=== PATIENT | female | born 1965 | race Caucasian/White ===

== ENCOUNTER 2016-07-19 14:46 | Observation (INO) | payer BC, OTHER ==
[2016-07-19] MEDS ORDERED: LORazepam 2 MG/ML SYRINGE IV STA (14:53)
--- NOTE | 2016-07-19 14:57 | ED ---
General Adult HPI - General Stated complaint: Chest Pain/With asthma/DU Time Seen by Provider: 07/19/16 14:46 Source: RN notes reviewed - History of Present Illness Initial comments: This is a 51-year-old female who presents emergency Department with a past history significant for scleroderma and asthma. According to the son patient started having and has been taking 2 hours ago and then started to have what he believes is a panic attack so she's not had those in the past. Patient states she then started having chest pain after about an hour and considered a pressure in the chest no radiation of the pressure however. States there is still some feeling of difficulty breathing. Patient states over the weekend she had a sinus infection but that seemed to be getting better. Patient denies any abdominal pain patient denies nausea vomiting diarrhea per patient denies any headache patient denies light headedness or dizziness. - Related Data Home Medications Medication Instructions Recorded Confirmed Gabapentin [Neurontin] 200 mg PO DAILY 07/19/16 07/19/16 Ondansetron HCl [Zofran] 8 mg PO Q8H PRN 07/19/16 07/19/16 carBAMazepine [TEGretol XR] 300 mg PO Q12H 07/19/16 07/19/16 Allergies Allergy/AdvReac Type Severity Reaction Status Date / Time cephalexin [From Keflex] Allergy Rash/Hives Verified 07/19/16 15:19 theophylline Allergy Unknown Verified 07/19/16 15:19 Review of Systems ROS Statement: Those systems with pertinent positive or pertinent negative responses have been documented in the HPI. ROS Other: All systems not noted in ROS Statement are negative. General Exam - General Exam Comments Initial Comments: GENERAL: Patient is well-developed and well-nourished. Patient is nontoxic and well- hydrated and is in mild distress. ENT: Neck is soft and supple. No significant lymphadenopathy is noted. Oropharynx is clear. Moist mucous membranes. Neck has full range of motion without eliciting any pain. EYES: The sclera were anicteric and conjunctiva were pink and moist. Extraocular movements were intact and pupils were equal round and reactive to light. Eyelids were unremarkable. PULMONARY: Patient has decent breath sounds however she has quite a bit of upper airway noise but I believe it is more secondary to her panicking and making noise and it is too any upper airway obstruction because it does appear to be intermittent CARDIOVASCULAR: There is a regular rate and rhythm without any murmurs gallops or rubs. ABDOMEN: Soft and nontender with normal bowel sounds. No palpable organomegaly was noted. There is no palpable pulsatile mass. SKIN: Skin is clear with no lesions or rashes and otherwise unremarkable. NEUROLOGIC: Patient is alert and oriented x3. Cranial nerves II through XII are grossly intact. Motor and sensory are also intact. Normal speech, volume and content. Symmetrical smile. MUSCULOSKELETAL: Normal extremities with adequate strength and full range of motion. No lower extremity swelling or edema. No calf tenderness. LYMPHATICS: No significant lymphadenopathy is noted PSYCHIATRIC: Normal psychiatric evaluation. Normal interpersonal interactions appears functionally intact in deals appropriately with others. No signs of depression. Moderately anxious Course Vital Signs 07/19/16 07/19/16 14:52 15:27 Temperature 98.3 F Pulse Rate 69 89 Respiratory 30 H 24 Rate Blood Pressure 139/100 133/67 O2 Sat by Pulse 100 99 Oximetry Medical Decision Making - Medical Decision Making EKG shows normal sinus rhythm at 87 bpm HI interval is 138 QRS is 72 QT interval 352 QTC is 423. EKG shows no ST segment elevation or depression or T wave abnormalities are noted Patient's chest x-ray shows no acute abnormality. Once I gave the patient some Ativan she seemed to relax started breathing considerably better. All vitals were stable and she was satting at 100% while sleeping Spoke with Dr. Gutiérrez and because of the chest pain we will 23 hour observation the patient rule out her enzymes and make sure she has no further difficulty breathing. - Lab Data Result diagrams: 07/19/16 15:05 07/19/16 15:05 Lab Results 07/19/16 07/19/16 07/19/16 Range/Units 15:05 15:05 15:05 WBC 6.9 (3.8-10.6) k/uL RBC 4.64 (3.80-5.40) m/uL Hgb 14.2 (11.4-16.0) gm/dL Hct 43.3 (34.0-46.0) % MCV 93.4 (80.0-100.0) fL MCH 30.5 (25.0-35.0) pg MCHC 32.7 (31.0-37.0) g/dL RDW 12.6 (11.5-15.5) % Plt Count 290 (150-450) k/uL Neutrophils % 68 % Lymphocytes % 23 % Monocytes % 6 % Eosinophils % 1 % Basophils % 1 % Neutrophils # 4.7 (1.3-7.7) k/uL Lymphocytes # 1.6 (1.0-4.8) k/uL Monocytes # 0.4 (0-1.0) k/uL Eosinophils # 0.1 (0-0.7) k/uL Basophils # 0.0 (0-0.2) k/uL PT (9.0-12.0) sec INR (<1.1) APTT (22.0-30.0) sec Sodium 141 (137-145) mmol/L Potassium 3.8 (3.5-5.1) mmol/L Chloride 104 (98-107) mmol/L Carbon Dioxide 21 L (22-30) mmol/L Anion Gap 16 mmol/L BUN 9 (7-17) mg/dL Creatinine 0.83 (0.52-1.04) mg/dL Est GFR (MDRD) Af Amer >60 (>60 ml/min/1.73 sqM) Est GFR (MDRD) Non-Af >60 (>60 ml/min/1.73 sqM) Glucose 93 (74-99) mg/dL Calcium 9.3 (8.4-10.2) mg/dL Magnesium 1.8 (1.6-2.3) mg/dL Total Bilirubin 0.3 (0.2-1.3) mg/dL AST 19 (14-36) U/L ALT 24 (9-52) U/L Alkaline Phosphatase 49 (38-126) U/L Total Creatine Kinase 38 (30-135) U/L CK-MB (CK-2) 0.3 (0.0-2.4) ng/mL CK-MB (CK-2) Rel Index 0.8 Troponin I <0.012 (0.000-0.034) ng/mL Total Protein 7.2 (6.3-8.2) g/dL Albumin 4.0 (3.5-5.0) g/dL 07/19/16 Range/Units 15:05 WBC (3.8-10.6) k/uL RBC (3.80-5.40) m/uL Hgb (11.4-16.0) gm/dL Hct (34.0-46.0) % MCV (80.0-100.0) fL MCH (25.0-35.0) pg MCHC (31.0-37.0) g/dL RDW (11.5-15.5) % Plt Count (150-450) k/uL Neutrophils % % Lymphocytes % % Monocytes % % Eosinophils % % Basophils % % Neutrophils # (1.3-7.7) k/uL Lymphocytes # (1.0-4.8) k/uL Monocytes # (0-1.0) k/uL Eosinophils # (0-0.7) k/uL Basophils # (0-0.2) k/uL PT 11.1 (9.0-12.0) sec INR 1.1 (<1.1) APTT 28.8 (22.0-30.0) sec Sodium (137-145) mmol/L Potassium (3.5-5.1) mmol/L Chloride (98-107) mmol/L Carbon Dioxide (22-30) mmol/L Anion Gap mmol/L BUN (7-17) mg/dL Creatinine (0.52-1.04) mg/dL Est GFR (MDRD) Af Amer (>60 ml/min/1.73 sqM) Est GFR (MDRD) Non-Af (>60 ml/min/1.73 sqM) Glucose (74-99) mg/dL Calcium (8.4-10.2) mg/dL Magnesium (1.6-2.3) mg/dL Total Bilirubin (0.2-1.3) mg/dL AST (14-36) U/L ALT (9-52) U/L Alkaline Phosphatase (38-126) U/L Total Creatine Kinase (30-135) U/L CK-MB (CK-2) (0.0-2.4) ng/mL CK-MB (CK-2) Rel Index Troponin I (0.000-0.034) ng/mL Total Protein (6.3-8.2) g/dL Albumin (3.5-5.0) g/dL Disposition Clinical Impression: Acute asthma exacerbation, Chest pain, Anxiety Disposition: ADMITTED IP TO [facility] Time of Disposition: 16:08
[2016-07-19] MEDS ORDERED: methylPREDNISolone SOD SUCCI 125 MG/2 ML VIAL IV STA (15:01)
[2016-07-19 15:14] LABS: Basophils % (A) 1 %; CH 31.7; CHCM 34.1; Eosinophils # (A) 0.1 k/uL (0-0.7); Eosinophils % (A) 1 %; HCT 43.3 % (34.0-46.0); HDW 2.28; HGB 14.2 gm/dL (11.4-16.0); Luc # (Auto) 0.09; Luc % (Auto) 1; Lymphocytes # (A) 1.6 k/uL (1.0-4.8); Lymphocytes % (A) 23 %; MCH 30.5 pg (25.0-35.0); MCHC 32.7 g/dL (31.0-37.0); MCV 93.4 fL (80.0-100.0); Mean Platelet Volume 7.5; Monocytes # (A) 0.4 k/uL (0-1.0); Monocytes % (A) 6 %; Neutrophils # (A) 4.7 k/uL (1.3-7.7); Neutrophils % (A) 68 %; RBC 4.64 m/uL (3.80-5.40); RDW 12.6 % (11.5-15.5); WBC 6.9 k/uL (3.8-10.6); WBC (Perox) 6.79
[2016-07-19 15:23] LABS: ALT 24 U/L (9-52); AST 19 U/L (14-36); Alkaline Phosphatase 49 U/L (38-126); Anion Gap 16 mmol/L; Blood Urea Nitrogen 9 mg/dL (7-17); Calcium 9.3 mg/dL (8.4-10.2); Carbon Dioxide 21 mmol/L (22-30); Chloride 104 mmol/L (98-107); Glucose 93 mg/dL (74-99); Magnesium 1.8 mg/dL (1.6-2.3); Non-African American GFR(MDRD) >60 (>60 ml/min/1.73 sqM); Potassium 3.8 mmol/L (3.5-5.1); Sodium 141 mmol/L (137-145); Total Bilirubin 0.3 mg/dL (0.2-1.3); Total Protein 7.2 g/dL (6.3-8.2)
[2016-07-19 15:25] LABS: INR 1.1 (<1.1); Partial Thromboplastin Time 28.8 sec (22.0-30.0); Prothrombin Time 11.1 sec (9.0-12.0)
[2016-07-19 15:34] LABS: Creatine Kinase 38 U/L (30-135)
--- NOTE | 2016-07-19 15:42 | XR ---
EXAMINATION TYPE: XR chest 2V DATE OF EXAM: 07/19/2016 3:39 PM COMPARISON: NONE HISTORY: Asthma TECHNIQUE: Frontal and lateral views of the chest are obtained. FINDINGS: Heart and mediastinum are normal. Lungs are clear. Diaphragm is normal. There are chest le ads. Bony thorax appears normal. IMPRESSION: Normal chest
[2016-07-19 15:47] LABS: Creatine Kinase MB 0.3 ng/mL (0.0-2.4); Troponin I <0.012 ng/mL (0.000-0.034)
[2016-07-19] MEDS ORDERED: ALPRAZolam 0.25 MG TAB PO PRN (17:07)
[2016-07-19 18:09] VITALS: BMI 21.7
[2016-07-19] MEDS ORDERED: ONDANSETRON 4 MG TAB PO PRN (19:43)
[2016-07-19] MEDS: IPRATROPIUM-ALBUTEROL 3 ML NEB INHALATION PRN (20:00)
[2016-07-19 20:27] LABS: Glucose,Whole Blood 149 mg/dL (75-99)
[2016-07-19] MEDS: GABAPENTIN 100 MG CAP PO SCH (20:50)
[2016-07-19] MEDS: carBAMazepine 100 MG TAB.ER.12H PO SCH (20:50)
[2016-07-19] MEDS: INSULIN LISPRO (humaLOG) 300 UNIT/3 ML VIAL SQ SCH (20:50)
[2016-07-19] MEDS: methylPREDNISolone SOD SUCCI 125 MG/2 ML VIAL IV SCH (23:21)
[2016-07-20 07:01] LABS: Glucose,Whole Blood 112 mg/dL (75-99)
[2016-07-20] MEDS: GABAPENTIN 100 MG CAP PO SCH (07:55)
[2016-07-20] MEDS: carBAMazepine 100 MG TAB.ER.12H PO SCH ×2 (07:55→19:57)
[2016-07-20] MEDS: INSULIN LISPRO (humaLOG) 300 UNIT/3 ML VIAL SQ SCH ×4 (07:55→19:57)
[2016-07-20] MEDS: methylPREDNISolone SOD SUCCI 125 MG/2 ML VIAL IV SCH ×3 (07:55→17:15)
[2016-07-20] MEDS: IPRATROPIUM-ALBUTEROL 3 ML NEB INHALATION PRN ×5 (10:06→22:10)
--- NOTE | 2016-07-20 12:09 | P.CNPUL ---
History of Present Illness Consult date: 07/20/16 Reason for consult: dyspnea History of present illness: 51-year-old female patient with a complicated history of scleroderma, limited, with history of crest syndrome, he is esophageal dysmotility, Raynaud's, chronic arthritis and chronic skin changes involving the neck anterior chest and the hands bilaterally. This patient is also known to have chronic bronchial asthma and she has been maintained on Symbicort on outpatient basis. The patient has not had any major breathing difficulties nor asthma exacerbation for many years. Her last exacerbation was approximately 4 years ago. The patient had a sinus infection approximately 4 weeks ago and she was treated on outpatient basis with antibiotics. She felt better. Around 24 hours ago she had exposure to some solution called static guarded, used to elevate the static from clothing. Immediately following the exposure the patient felt increased shortness of breath and tightness in her anterior chest. She became progressively more anxious when she was unable to find her an inhaler which was also . At that point she contacted me and asked to come in to the emergency department. Chest x-ray done showed no acute abnormalities and the rest of the blood work is all negative. On today's evaluation the patient is still having some increased bronchospasm and wheezing especially with extremity maneuvers pH is currently on oxygen. No fever or chills. No sputum production. Chest is still feeling tight. She is on DuoNeb nebulized treatments and she is started on IV Solu-Medrol for asthma exacerbation. She has chronic symptoms of heartburn which is not active for now. Review of Systems We'll review of system was done and the positive findings are mentionable history of present illness: Past Medical History Past Medical History: No Reported History, Asthma, Fibromyalgia Additional Past Medical History / Comment(s): limnited scleraderma with CREST , esophageal dysmotolity and Raynauds, pt. states she also has small fiber neuropathy and vertigo, Bacterial overgrowth involving the large bowel, chronic weight loss due to dietary difficulties in association with his esophageal dysmotility, chronic pain, degenerative arthritis History of Any Multi-Drug Resistant Organisms: None Reported Additional Past Surgical History / Comment(s): EGD, eve fundoplication Past Anesthesia/Blood Transfusion Reactions: No Reported Reaction Past Psychological History: Anxiety, Depression Smoking Status: Never smoker Past Alcohol Use History: Occasional Past Drug Use History: None Reported - Past Family History Father Family Medical History: Cancer Additional Family Medical History / Comment(s): father 11 years ago from lung cancer Mother Additional Family Medical History / Comment(s): pt. states her mother is alive and healthy Medications and Allergies Home Medications Medication Instructions Recorded Confirmed Type Albuterol Inhaler [Ventolin Hfa 1 - 2 puff INHALATION PRN 07/19/16 History Inhaler] Gabapentin [Neurontin] 200 mg PO DAILY 07/19/16 07/19/16 History Ondansetron HCl [Zofran] 8 mg PO Q8H PRN 07/19/16 07/19/16 History carBAMazepine [TEGretol XR] 300 mg PO Q12H 07/19/16 07/19/16 History Allergies Allergy/AdvReac Type Severity Reaction Status Date / Time cephalexin [From Keflex] Allergy Rash/Hives Verified 07/19/16 18:21 theophylline Allergy Unknown Verified 07/19/16 18:21 Physical Exam Vitals: Vital Signs Temp Pulse Pulse Resp BP BP Pulse Ox 07/20/16 10:06 84 07/20/16 08:00 97.8 F 83 16 100/57 99 07/20/16 04:00 98.2 F 74 18 96/52 99 07/20/16 03:34 89 18 07/19/16 23:40 89 18 07/19/16 23:35 89 18 93/57 98 07/19/16 20:14 82 07/19/16 20:00 82 83 18 07/19/16 19:51 97.9 F 83 18 107/73 100 07/19/16 18:09 16 07/19/16 17:23 98 F 16 103/69 98 07/19/16 16:55 97.6 F 97 16 100/57 100 07/19/16 16:11 85 18 101/65 100 Intake and Output 07/19/16 07/20/16 07/20/16 22:59 06:59 14:59 Intake Total 150 240 Balance 150 240 Intake: Oral 150 240 Other: Voiding Method Toilet Toilet Toilet # Voids 3 Weight 61.235 kg Head exam was generally normal. There was no scleral icterus or corneal arcus. Mucous membranes were moist.Neck was supple and without jugular venous distension, thyromegaly, or carotid bruits. Carotids were easily palpable bilaterally. There was no adenopathy. Skin over the anterior neck is rather thickened typical of scleroderma. Lung sounds are diminished and there is diffuse expiratory wheezes throughout the lung ulloa bilaterally along with prolongation of the expiratory phase of breathing.Cardiac exam revealed the PMI to be normally situated and sized. The rhythm was regular and no extrasystoles were noted during several minutes of auscultation. The first and second heart sounds were normal and physiologic splitting of the second heart sound was noted. There were no murmurs, rubs, clicks, or gallops.Abdominal exam revealed normal bowel sounds. The abdomen was soft, non-tender, and without masses, organomegaly, or appreciable enlargement of the abdominal aorta.Examination of the extremities revealed easily palpable radial, femoral and pedal pulses. There was no cyanosis, clubbing or edema. Results - Laboratory Findings CBC and BMP: 07/19/16 15:05 07/19/16 15:05 PT/INR, D-dimer PT 11.1 sec (9.0-12.0) 07/19/16 15:05 INR 1.1 (<1.1) 07/19/16 15:05 Abnormal lab findings: Abnormal Labs 07/19/16 07/20/16 20:22 06:56 POC Glucose (mg/dL) 149 H 112 H - Diagnostic Findings Chest x-ray: image reviewed Assessment and Plan Plan: Assessment 1 acute asthma exacerbation, probably due to chemical exposure, cannot rule out underlying tracheal bronchitis. No evidence of any pneumonia on today's chest x -ray. The patient was admitted for increased shortness of breath and she is currently on a combination of bronchodilators and systemic steroids. She was given Advair the past however she has not been on it on a regular basis as maintenance. No rescue inhalers that was available to her at home. 2 shortness of breath secondary to above 3 scleroderma 4 crest syndrome investigation was scleroderma 5 chronic esophageal dysmotility with reflux and difficulty with swallowing and subsequent weight loss 6 reynouald's phenomena 7 fibromyalgia 8 chronic pain 9 peripheral neuropathy 10 complications related to scleroderma including bacterial overgrowth Plan We'll keep the patient has less for another 24 hours. We'll continue the bronchodilators and systemic steroids. We'll cover this patient with IV Zithromax 5 mg every 24 hours is a broad-spectrum antibiotic coverage regarding sicca bronchitis. We'll continue to follow make further recommendations based on her progress.
[2016-07-20 12:21] LABS: Hemoglobin A1C 4.9 % (4.2-6.1)
[2016-07-20] MEDS: AZITHROMYCIN 500 MG in SODIUM CHLORIDE 0.9% 250 ML IVPB SCH (13:24)
[2016-07-20] MEDS: PANTOPRAZOLE 40 MG/10 ML VIAL IVP SCH (17:13)
[2016-07-20 17:16] LABS: Glucose,Whole Blood 390 mg/dL (75-99)
[2016-07-20] MEDS: HEPARIN SODIUM,PORCINE 5,000 UNIT/ML 1 ML VIAL SQ SCH ×3 (17:17→19:57)
--- NOTE | 2016-07-20 17:55 | HP ---
DATE OF ADMISSION: Chief complaint is difficulty breathing. HISTORY OF ILLNESS: Ms. Mcdonald is a 51-year-old female with known history of scleroderma, fibromyalgia and other complications involving scleroderma including history of esophageal dysmotility and small bowel bacterial overgrowth and history of asthma. Came to the hospital with complaints of sudden onset of short of breath. While she was cleaning the house, apparently patient was spraying static guard at home when she got suddenly short of breath which made her come to the hospital and the patient was wheezing on admission. Patient did improve clinically with systemic steroids and breathing treatments. Patient did have a sinus infection 4 weeks ago and she was treated with antibiotics as an outpatient. Chest x-ray showed no acute cardiopulmonary process. Pulmonary has seen the patient and patient was also started on antibiotics in the form for azithromycin for acute tracheobronchitis. Denied any recent illnesses or sick contacts at home. No recent travel. Patient is followed at the [facility] for her scleroderma treatment. REVIEW OF SYSTEMS: CONSTITUTIONAL: No fever. No chills. No weakness. RESPIRATORY: No cough or sputum production and patient does have short of breath. CARDIOVASCULAR: No chest pain or short of breath. No leg swelling. ABDOMEN: No nausea, vomiting or abdominal pain. GENITOURINARY: Negative. ENDOCRINE: Negative. PSYCHIATRIC: Negative. SKIN: Negative. All other 14-point review of systems negative except as above. PAST MEDICAL HISTORY: Chronic bronchial asthma, fibromyalgia, limited scleroderma with Crest syndrome, severe dysmotility, Raynaud's phenomenon, small fiber neuropathy and vertigo, bacterial overgrowth involving the small bowel, chronic weight loss due to dietary difficulties in association with esophageal dysmotility and chronic pain, degenerative joint disease. PAST SURGICAL HISTORY: EGD, nasal fundoplication. PSYCHOSOCIAL HISTORY: Anxiety and depression. SOCIAL HISTORY: Patient never a smoker. Occasional alcohol, denied any drugs or IVDU. FAMILY HISTORY: Father had cancer, 11 years ago from lung cancer. Mother is living and healthy. Home medications include: 1. Albuterol HFA. 2. Gabapentin. 3. Ondansetron. 4. Tegretol. Allergies include KEFLEX and THEOPHYLLINE. PHYSICAL EXAMINATION: A 51-year-old female, lying in the bed. Awake, alert, oriented x3. Appears to be in no apparent distress. VITALS: Blood pressure is 96/52, pulse rate is 74, respiration is 18, temperature afebrile, pulse ox 99% on 2 L nasal cannula. The patient is not on home oxygen at this time. HEENT: Atraumatic, normocephalic. Neck is supple. No JVD. CVS EXAM: S1, S2 heard. No murmurs, no gallop, no rub. LUNGS: Bilateral air entry is present, rhonchi expiratory phase. No wheezing. Nonlabored breathing. Abdomen is soft, nontender. Bowel sounds present. TRANSPORTATION MAINTENANCE SPECIALIST: Awake, alert, oriented x3. No focal neurologic deficits. Cranial nerves grossly intact. EXTREMITIES: No edema. Pulses palpable bilaterally. No clubbing or cyanosis. PSYCHIATRIC: Cooperative. SKIN: No active rash. Patient does have scaly skin on the back and no active lesions noted. LABORATORY DATA: WBC 6.9, hemoglobin 14.2, platelets 219, INR 1.1. Sodium 141, potassium 3.8, chloride 104, bicarb is 21, BUN 9, creatinine 0.83, HB-A1c 4.9. ( ) within normal limits. Troponin x3 negative. Albumin 4.0. Chest x-ray, normal chest. EKG normal sinus rhythm. IMPRESSION: 1. Acute asthma exacerbation secondary to chemical exposure in the form of static guard. 2. Acute tracheobronchitis. 3. Scleroderma diagnosed about 4-1/2 years ago. 4. Crest syndrome. 5. Chronic esophageal dysmotility due to scleroderma. 6. Raynaud's phenomenon. 7. Fibromyalgia. 8. Osteoarthritis. 9. Small bowel bacterial overgrowth. 10. peripheral neuropathy. 11. Chronic pain. DISCUSSION AND PLAN: A 51-year-old female admitted to the hospital with acute asthma exacerbation. Patient is never a smoker. Will continue with the IV steroids, continue with the breathing treatments and continue with the antibiotics in the form azithromycin. Pulmonary is following the patient. Will continue the home medications. Further recommendations based on the clinical course. MTDD
[2016-07-20 19:53] LABS: Glucose,Whole Blood 204 mg/dL (75-99)
[2016-07-21] MEDS: methylPREDNISolone SOD SUCCI 125 MG/2 ML VIAL IV SCH ×3 (01:13→11:23)
[2016-07-21] MEDS: IPRATROPIUM-ALBUTEROL 3 ML NEB INHALATION PRN ×4 (02:05→12:36)
[2016-07-21 06:57] LABS: Glucose,Whole Blood 118 mg/dL (75-99)
[2016-07-21] MEDS: PANTOPRAZOLE 40 MG/10 ML VIAL IVP SCH (08:06)
[2016-07-21] MEDS: HEPARIN SODIUM,PORCINE 5,000 UNIT/ML 1 ML VIAL SQ SCH (08:07)
[2016-07-21] MEDS: INSULIN LISPRO (humaLOG) 300 UNIT/3 ML VIAL SQ SCH ×2 (08:07→12:54)
[2016-07-21] MEDS: carBAMazepine 100 MG TAB.ER.12H PO SCH ×2 (08:08→09:25)
[2016-07-21] MEDS: AZITHROMYCIN 500 MG in SODIUM CHLORIDE 0.9% 250 ML IVPB SCH (11:36)
[2016-07-21 11:45] VITALS: BP 97/52; TEMP 98.1
[2016-07-21 11:53] LABS: Glucose,Whole Blood 108 mg/dL (75-99)
[2016-07-21 12:56] VITALS: PULSE 88
[2016-07-21 14:14] VITALS: RESP 18
--- NOTE | 2016-07-21 16:33 | P.PN ---
Subjective Principal diagnosis: Acute exacerbation of bronchial asthma 51-year-old female patient with a complicated history of scleroderma, limited, with history of crest syndrome, he is esophageal dysmotility, Raynaud's, chronic arthritis and chronic skin changes involving the neck anterior chest and the hands bilaterally. This patient is also known to have chronic bronchial asthma and she has been maintained on Symbicort on outpatient basis. The patient has not had any major breathing difficulties nor asthma exacerbation for many years. Her last exacerbation was approximately 4 years ago. The patient had a sinus infection approximately 4 weeks ago and she was treated on outpatient basis with antibiotics. She felt better. Around 24 hours ago she had exposure to some solution called static guarded, used to elevate the static from clothing. Immediately following the exposure the patient felt increased shortness of breath and tightness in her anterior chest. She became progressively more anxious when she was unable to find her an inhaler which was also . At that point she contacted me and asked to come in to the emergency department. Chest x-ray done showed no acute abnormalities and the rest of the blood work is all negative. On today's evaluation the patient is still having some increased bronchospasm and wheezing especially with extremity maneuvers pH is currently on oxygen. No fever or chills. No sputum production. Chest is still feeling tight. She is on DuoNeb nebulized treatments and she is started on IV Solu-Medrol for asthma exacerbation. She has chronic symptoms of heartburn which is not active for now. Patient was reevaluated today on 07/21/2016, and she seems to be doing quite well. No cough no wheezing no shortness of breath, patient is feeling much better today compared to yesterday. Objective - Vital Signs Vital signs: Vital Signs Temp 98.1 F 07/21/16 11:45 Pulse 88 07/21/16 12:56 Resp 18 07/21/16 12:00 BP 97/52 07/21/16 11:45 Pulse Ox 99 07/21/16 11:45 Intake & Output 07/20/16 07/21/16 07/21/16 18:59 06:59 18:59 Intake Total 240 240 Balance 240 240 Intake: Oral 240 240 Other: Voiding Method Toilet Toilet # Voids 3 1 1 - Exam Physical Exam: Revealed a 51-year-old in no distress HEENT:[Neck is supple.] [No neck masses.] [No thyromegaly.] [No JVD.] Chest: [Clear throughout, no crackles, no rhonchi, no wheezes.] Cardiac Exam: [Normal S1 and S2, no S3 gallop, no murmur.] Abdomen: [Soft, nontender, no megaly, no rebound, no guarding, normal bowel sounds.] Extremities: [No clubbing, no edema, no cyanosis.] Neurological Exam: [No focal neurologic deficit.] - Labs CBC & Chem 7: 07/19/16 15:05 07/19/16 15:05 Labs: Abnormal Lab Results - Last 24 Hours (Table) 07/20/16 07/20/16 07/21/16 Range/Units 17:13 19:50 06:55 POC Glucose (mg/dL) 390 H 204 H 118 H (75-99) mg/dL 07/21/16 Range/Units 11:51 POC Glucose (mg/dL) 108 H (75-99) mg/dL Assessment and Plan Plan: 1 acute asthma exacerbation, probably due to chemical exposure, cannot rule out underlying tracheal bronchitis. No evidence of any pneumonia on today's chest x -ray. The patient was admitted for increased shortness of breath and she is currently on a combination of bronchodilators and systemic steroids. She was given Advair the past however she has not been on it on a regular basis as maintenance. No rescue inhalers that was available to her at home. 2 shortness of breath secondary to above 3 scleroderma 4 crest syndrome investigation was scleroderma 5 chronic esophageal dysmotility with reflux and difficulty with swallowing and subsequent weight loss 6 reynouald's phenomena 7 fibromyalgia 8 chronic pain 9 peripheral neuropathy Recommendation: Patient is doing much better, hence could be considered for discharge today on prednisone burst and taper, her usual bronchodilators, and she is to follow-up with Dr. Gutiérrez patient could be discharged on oral Zithromax 500 mg daily for next 5 days. Time with Patient: Less than 30
[2016-07-21] MEDS ORDERED: GABAPENTIN 100 MG CAP PO SCH (21:00)
[2016-07-22] MEDS ORDERED: PANTOPRAZOLE 40 MG TABLET PO SCH (07:30)
[2016-07-22] MEDS ORDERED: AZITHROMYCIN 500 MG TAB PO SCH (12:00)
--- NOTE | 2016-07-22 21:14 | DS ---
DATE OF ADMISSION: 07/19/2016 DATE OF DISCHARGE: 07/21/2016 CONSULTATION: Pulmonary consultation. DISCHARGE DIAGNOSES: 1. Acute asthma exacerbation secondary to chemical exposure in the form of Static Guard. 2. Acute tracheobronchitis, improved. 3. Scleroderma, diagnosed about 4-1/2 years ago. 4. CREST syndrome. 5. Chronic esophageal dysmotility due to scleroderma. 6. Raynaud phenomenon. 7. Fibromyalgia. 8. Osteoarthritis. 9. Small-bowel bacterial overgrowth secondary to scleroderma. 10. Peripheral neuropathy. 11. Chronic pain. HOSPITAL COURSE: Ms. Mcdonald is a 51-year-old female with a known history of multiple medical problems, as discussed above, who was admitted to the hospital with acute shortness of breath when patient was exposed to Static Guard spray while she was cleaning the house. Patient was treated for acute asthma exacerbation with IV steroids and tracheobronchitis as well. Patient did improve clinically. Pulmonary saw the patient and has cleared her for discharge now. Patient will be discharged on antibiotics and steroid burst and taper. She will follow with her primary care physician and pulmonary clinic in one week. Patient is stable to be discharged home. DISCHARGE PHYSICAL EXAMINATION: [id number] female lying in the bed. Awake, alert, oriented x3. Appears to be in no distress. VITAL SIGNS: Blood pressure is 97/52. Pulse is 92, respiration 16, temperature afebrile, pulse ox 99% on room air. LABORATORY DATA: Reviewed. Discharge physical examination done. Discharge medications include: 1. Albuterol inhaler 1 to 2 puffs q.6 hourly p.r.n. for shortness of breath. 2. Gabapentin 200 mg p.o. daily. 3. Ondansetron 8 mg p.o. q.8 hourly p.r.n. for nausea, vomiting. 4. Tegretol XR 300 mg p.o. q.12 hours. 5. Azithromycin 500 mg p.o. daily for 3 days. 6. Prednisone 40 mg p.o. daily for 5 days. Patient will be discharged home in stable condition. Activity as tolerated. Heart-healthy diet. Follow with Dr. Gutiérrez on 07/25/16 at 1 p.m. Home with self-care.
== END 2016-07-21 14:21 | disposition home or self-care (01) ==
LOC: EC 14:46 → 3OBS 16:08
PROVIDERS: ADMIT Internal Medicine; ATTEND Internal Medicine
DX: J45.901 Unspecified asthma with (acute) exacerbation (principal); Z77.098 Contact with and (suspected) exposure to other hazardous, chiefly nonmedicinal, chemicals; J20.9 Acute bronchitis, unspecified; M34.1 CR(E)ST syndrome; K22.4 Dyskinesia of esophagus; M79.7 Fibromyalgia; M19.90 Unspecified osteoarthritis, unspecified site; G62.9 Polyneuropathy, unspecified; G89.29 Other chronic pain; K21.9 Gastro-esophageal reflux disease without esophagitis; F32.9 Major depressive disorder, single episode, unspecified; F41.0 Panic disorder [episodic paroxysmal anxiety]; F41.9 Anxiety disorder, unspecified; Z79.899 Other long term (current) drug therapy; Z88.1 Allergy status to other antibiotic agents; Z88.8 Allergy status to other drugs, medicaments and biological substances; I73.00 Raynaud's syndrome without gangrene
CPT/HCPCS: 36415; 94640 ×5; 94760; 80053; 83036; 82550; 82553; 83735; 84484 ×2; 85025; 85610; 85730; 71020; 99285; 96375 ×2; G0378 ×3; J2060; J2930 ×3; J0456 ×2; C9113 ×2; 93005; 96365; 96366; 96376

== ENCOUNTER → 2016-10-22 | Outpatient (CLI) | payer BC ==
--- NOTE | 2016-10-22 11:39 | MM ---
Reason for exam: screening (asymptomatic). Baseline mammogram. Physical Findings: Nurse did not find any significant physical abnormalities on exam. MG Screening Mammo w CAD Bilateral CC and MLO view(s) were taken. The breast tissue is extremely dense which could obscure a lesion on mammography. Finding: There are typically benign calcifications in the right breast. These results were verbally communicated with the patient and result sheet given to the patient on 10/22/16. ASSESSMENT: Benign, BI-RAD 2 RECOMMENDATION: Routine screening mammogram of both breasts in 1 year.
== END | disposition home or self-care (01) ==
LOC: RADMAMWWP 10:08
PROVIDERS: ATTEND Internal Medicine Critical Care Medicine
DX: Z12.31 Encounter for screening mammogram for malignant neoplasm of breast (principal)

== ENCOUNTER → 2018-02-16 | Outpatient (CLI) | payer SELFPAY ==
[2018-02-16 13:45] LABS: Basophils % (A) 1 %; Eosinophils # (A) 0.2 k/uL (0-0.7); Eosinophils % (A) 3 %; HCT 45.9 % (34.0-46.0); HGB 14.9 gm/dL (11.4-16.0); Lymphocytes # (A) 1.5 k/uL (1.0-4.8); Lymphocytes % (A) 29 %; MCH 30.6 pg (25.0-35.0); MCHC 32.4 g/dL (31.0-37.0); MCV 94.3 fL (80.0-100.0); Mean Platelet Volume 6.8; Monocytes # (A) 0.3 k/uL (0-1.0); Monocytes % (A) 7 %; Neutrophils % (A) 58 %; Platelet Count 301 k/uL (150-450); RBC 4.86 m/uL (3.80-5.40); RDW 12.7 % (11.5-15.5); WBC 5.1 k/uL (3.8-10.6)
[2018-02-16 13:51] LABS: ALT 29 U/L (9-52); AST 21 U/L (14-36); Albumin 4.1 g/dL (3.5-5.0); Alkaline Phosphatase 45 U/L (38-126); Amylase 61 U/L (30-110); Anion Gap 8 mmol/L; Blood Urea Nitrogen 8 mg/dL (7-17); Calcium 9.5 mg/dL (8.4-10.2); Carbon Dioxide 29 mmol/L (22-30); Chloride 104 mmol/L (98-107); Creatine Kinase 35 U/L (30-135); Glucose 84 mg/dL (74-99); Lipase 210 U/L (23-300); Potassium 4.7 mmol/L (3.5-5.1); Sodium 141 mmol/L (137-145); Total Bilirubin 0.4 mg/dL (0.2-1.3); Total Protein 6.9 g/dL (6.3-8.2)
[2018-02-16 14:07] LABS: T4, Free (Free Thyroxine) 0.76 ng/dL (0.78-2.19)
[2018-02-16 14:57] LABS: Erythrocyte Sedimentation Rate 4 mm/hr (0-20)
[2018-02-16 20:53] LABS: Vitamin D 25 Hydroxy 27.3 ng/mL (30.0-100.0)
[2018-02-16 20:54] LABS: Folate, Serum 8.1 ng/mL
== END | disposition home or self-care (01) ==
LOC: LABWHC1 12:48
PROVIDERS: ATTEND Internal Medicine Critical Care Medicine
DX: M34.1 CR(E)ST syndrome (principal)
CPT/HCPCS: 36415; 80053; 82150; 82306; 82533; 82550; 82607; 82746; 83690; 84439; 84443; 85025; 85652

== ENCOUNTER → 2018-11-19 | Outpatient (CLI) | payer MEDICARE ==
[2018-11-19 16:03] LABS: T4, Free (Free Thyroxine) 0.9 ng/dL (0.80-1.80)
--- NOTE | 2018-11-22 09:33 | MM ---
Reason for exam: screening (asymptomatic). Last mammogram was performed 2 years and 1 month ago. Physical Findings: A clinical breast exam by your physician is recommended on an annual basis and results should be correlated with mammographic findings. MG 3D Screening Mammo W/Cad Bilateral CC and MLO view(s) were taken. Prior study comparison: October 22, 2016, bilateral MG screening mammo w CAD. The breast tissue is heterogeneously dense. This may lower the sensitivity of mammography. No suspicious abnormality. No significant changes when compared with prior studies. ASSESSMENT: Negative, BI-RAD 1 RECOMMENDATION: Routine screening mammogram of both breasts in 1 year.
== END ==
LOC: LAB 09:54
PROVIDERS: ATTEND Internal Medicine Critical Care Medicine
DX: Z12.31 Encounter for screening mammogram for malignant neoplasm of breast (principal); Z00.00 Encounter for general adult medical examination without abnormal findings; R53.83 Other fatigue
CPT/HCPCS: 36415; 77063; 77067; 84439; 84443

== ENCOUNTER → 2019-03-18 | Outpatient (CLI) | payer MEDICARE | END | disposition home or self-care (01) | LOC: LABWHC1 15:19 | PROVIDERS: ATTEND Internal Medicine Critical Care Medicine | DX: R68.2 Dry mouth, unspecified (principal) | CPT/HCPCS: 36415; 86235 ==

== ENCOUNTER → 2019-07-29 | Outpatient (CLI) | payer MEDICARE, OTHER ==
[2019-07-29 12:47] LABS: Basophils # (A) 0.1 k/uL (0-0.2); Basophils % (A) 1 %; Eosinophils # (A) 0.3 k/uL (0-0.7); Eosinophils % (A) 5 %; HCT 47.8 % (34.0-46.0); HGB 15.4 gm/dL (11.4-16.0); Lymphocytes # (A) 2.1 k/uL (1.0-4.8); Lymphocytes % (A) 34 %; MCH 30.3 pg (25.0-35.0); MCHC 32.3 g/dL (31.0-37.0); MCV 93.5 fL (80.0-100.0); Mean Platelet Volume 7.7; Monocytes # (A) 0.3 k/uL (0-1.0); Monocytes % (A) 5 %; Neutrophils # (A) 3.2 k/uL (1.3-7.7); Neutrophils % (A) 52 %; Platelet Count 273 k/uL (150-450); RBC 5.11 m/uL (3.80-5.40); RDW 13.2 % (11.5-15.5); WBC 6.1 k/uL (3.8-10.6)
[2019-07-29 18:26] LABS: Chol/HDL Ratio 3.33; LDL Cholesterol,Calculated 116.6 mg/dL (0.0-131.0); VLDL Calculation 25.4 mg/dL (5.00-40.00)
[2019-07-29 18:27] LABS: African American GFR (CKD) 84.6 (60.0-200.0); Albumin 4.3 g/dL (3.80-4.90); Albumin/Globulin Ratio 1.65 (1.60-3.17); Anion Gap 7.4 mmol/L (4.00-12.00); BUN/Creat Ratio 11.11 Ratio (12.00-20.00); Calcium 9.6 mg/dL (8.7-10.3); Carbon Dioxide 28.6 mmol/L (21.6-31.8); Globulin 2.6 g/dL (1.6-3.3); Potassium 4.4 mmol/L (3.5-5.5); Total Bilirubin 0.5 mg/dL (0.2-1.2); Total Protein 6.9 g/dL (6.2-8.2)
== END | disposition home or self-care (01) ==
LOC: LABWHC1 12:32
PROVIDERS: ATTEND Internal Medicine Critical Care Medicine
DX: Z00.00 Encounter for general adult medical examination without abnormal findings (principal)
CPT/HCPCS: 36415; 80053; 80061; 82550; 85025

== ENCOUNTER → 2020-03-12 | Outpatient (CLI) | payer MEDICARE, OTHER ==
--- NOTE | 2020-03-12 09:01 | CT ---
EXAMINATION TYPE: CT cervical spine wo con DATE OF EXAM: 03/12/2020 COMPARISON: NONE HISTORY: Cervicalgia. Spondylosis. Cervical disc displacement C5-C6 with radiculopathy. Headache. Oth er disc degeneration. Radiculopathy all per order. CT DLP: 239.1 mGycm. Automated Exposure Control for Dose Reduction was Utilized. TECHNIQUE: CT scan of the cervical spine is obtained without contrast, axial images are obtained, sa gittal and coronal reformatted images are also reviewed. FINDINGS: Cervical spine is visualized in its entirety from C1 through upper thoracic levels, demonst rates exaggerated cervical curvature upper cervical spine with subtle grade 1 retrolisthesis C6 on C7 . There is grade 1 retrolisthesis C3 on C4. Vertebral body heights are maintained. There is moderate to severe disc space narrowing and moderate anterior and lateral spurring C6-C7 level. Axial images at C2-C3 level are felt within normal limits. Axial images at C3-C4 level show mild right-sided neural foraminal narrowing due to marginal spurring . Axial images at C4-C5 level show advanced right-sided bony formation, this is causing advanced right- sided neural foraminal narrowing. Bony formation extends out of proportion to degree expected for the degenerative change though there is marked foraminal narrowing on sagittal images. There is extensio n posteriorly and laterally noted. Axial images at the C5-C6 level shows a left paracentral disc protrusion effacing ventral thecal sac on axial image 47 and causing [id number] left-sided neural foraminal narrowing. Axial images at C6-C7 level show posterior spur disc complex mildly effacing the anterior thecal sac, there is mild right-sided neural foraminal narrowing. Axial images at C7-T1 level are felt within normal limits. Visualized lung apices show [id number] pleural/parenchymal scarring. Some punctate calcificatio ns throughout the parotid glands bilaterally are present. IMPRESSION: Multilevel spondylolisthesis and degenerative changes as detailed above. Extensive bony f ormation and heterotopic ossification right C4-C5 level causes advanced right-sided neural foraminal narrowing.
== END | disposition home or self-care (01) ==
LOC: RADCTMAIN 07:30
PROVIDERS: ATTEND Physical Medicine & Rehabilitation
DX: M48.02 Spinal stenosis, cervical region (principal); M43.12 Spondylolisthesis, cervical region; M47.22 Other spondylosis with radiculopathy, cervical region; M53.82 Other specified dorsopathies, cervical region
CPT/HCPCS: 72125

== ENCOUNTER → 2020-07-11 | Outpatient (CLI) | payer MEDICARE, OTHER ==
--- NOTE | 2020-07-11 09:10 | CT ---
EXAMINATION TYPE: CT cervical spine wo con DATE OF EXAM: 07/11/2020 COMPARISON: CT cervical spine March 12, 2020. HISTORY: Cervical disc displacement with radiculopathy. Headache with neck pain and stiffness. CT DLP: 282.2 mGycm. Automated Exposure Control for Dose Reduction was Utilized. TECHNIQUE: CT scan of the cervical spine is obtained without contrast, axial images are obtained, sa gittal and coronal reformatted images are also reviewed. FINDINGS: Cervical spine is visualized in its entirety from C1 through upper thoracic levels, there i s interval surgery with placement of left posterior interpedicular screws at C4-C6 levels and right-s ided intrapedicular screws at C4 and C6 levels. There is right lateral osseous resection at C5 level site of prior visualized extensive bony formation. Streak artifact from surgical hardware makes evalu ation slightly suboptimal in these levels. Alignment is stable and satisfactory. Moderate to severe d isc space narrowing C6-C7 level greatest anteriorly. There are punctate densities near the posterior screws and spinous processes from C4 through C6 levels bilaterally. Spinal canal is grossly preserved . Axial images redemonstrated uncovertebral facet degenerative changes, there is improved right-sided n eural foraminal narrowing C3-C4 level after surgery. Similar findings at right C4-C5 level after bony resection. Mild biapical pleural/parenchymal scarring. Thyroid gland remains unremarkable. IMPRESSION: Interval surgery C4-C6 levels with right lateral bony resection. Improved right mid later al foraminal narrowing. Alignment stable.
--- NOTE | 2020-07-11 09:19 | CT ---
EXAMINATION TYPE: CT lumbar spine wo con DATE OF EXAM: 07/11/2020 8:55 AM COMPARISON: None. HISTORY: Intervertebral disc degeneration, possible calcium growth, pain and stiffness. CT DLP: 338.3 mGycm Automated exposure control for dose reduction was used. Unenhanced CT of the lumbar spine was performed. Bone and soft tissue window settings are submitted as well as coronal and sagittal reconstructions. Osseous structures are demineralized. There are 6 lumbar type vertebra. Vertebral body heights inters pace heights are maintained. Small posterior disc herniation L5-L6 level on sagittal image 30. Axial images at L1-L2, L2-L3, and L3-L4 levels are within normal limits. Axial images at L4-L5 levels with mild rim calcified broad disc bulge and facet arthropathy, minimal effacement of the anterior thecal sac. Axial images at L5-L6 level shows central disc protrusion and moderate facet degenerative changes on image 53. There is effacement of the anterior thecal sac. Patent bilateral neural foramina. Axial images at L6-S1 show moderate facet arthropathy bilaterally. Spinal canal is preserved. Patient bilateral neural foramina. There is sclerotic 1.1 cm lesion right iliac bone coronal image 40, nonspecific. IMPRESSION: Mild to moderate degenerative changes in the mid to lower lumbar spine as detailed above.
--- NOTE | 2020-07-11 09:55 | MR ---
EXAMINATION TYPE: MR cspine/lspine wo con DATE OF EXAM: 07/11/2020 COMPARISON: CT scans 07/11/2020 HISTORY: Cervical disc displacement, disc disorder, degeneration lumbar, rg, pain, stiffness TECHNIQUE: Multiplanar, multisequence imaging of the cervical and lumbar spine is performed without I V contrast. FINDINGS: Cervical spine MRI: Cervical vertebral bodies show preserved height and alignment. There is increased signal within the C6 vertebral body to the left of midline on T1 and T2-weighted sequences consisten t with hemangioma. Loss of disc height and signal is greatest at C5-6, C6-7, there is associated spon dylosis, endplate discogenic marrow signal change. Postop changes are noted to the posterior cervical spine, there is susceptibility artifact due to patient's hardware. Cervical cord signal is maintaine d. No evident spinal stenosis. C2-3: Unremarkable C3-4: Minimal posterior broad-based disc bulge somewhat eccentric toward the right causes minimal ant erior mass effect on the thecal sac. No significant foraminal encroachment. C4-5: No evident foraminal encroachment or significant disc herniation. C5-6: No disc herniation or significant foraminal encroachment. C6-7: Posterior extension endplate disc complex causes mild anterior mass effect on the thecal sac. T here is some foraminal encroachment due to uncovertebral joint hypertrophy bilaterally. C7-T1: No significant abnormality. IMPRESSION: Postop changes, mild degenerative disc disease. Lumbar spine MRI: Sagittal images of the lumbar spine show vertebral body heights and alignment to appear satisfactory. The intervertebral discs demonstrate normal heights and hydration with the exception of some mild si gnal loss L4-5. The conus medullaris is normal in position and signal. The bone marrow signal inten sity is remarkable for some mild spondylosis, endplate discogenic marrow signal change. Sclerotic foc us noted on CT in the right posterior ilium shows some intermediate signal on T1 and T2-weighted sequ ences with low dense margin, nonaggressive appearance. There is no significant spinal stenosis or for aminal encroachment. Axial images show at L5-S1 some facet arthropathy change. No disc herniation. L4-5: Posterior central disc bulge causes mild anterior mass effect on the thecal sac. There is mild facet arthropathy change. L3-4: Minimal posterior disc bulge is noted. Remaining levels are unremarkable. T12-L1 shows probable nerve sheath diverticulum on the right as does L2-3 IMPRESSION: Mild degenerative disc series
== END | disposition home or self-care (01) ==
LOC: RADCTMAIN 07:32
PROVIDERS: ATTEND Neurological Surgery
DX: M50.10 Cervical disc disorder with radiculopathy, unspecified cervical region (principal); M51.36 Other intervertebral disc degeneration, lumbar region; M47.816 Spondylosis without myelopathy or radiculopathy, lumbar region; M50.20 Other cervical disc displacement, unspecified cervical region; Z98.890 Other specified postprocedural states
CPT/HCPCS: 72125; 72131; 72141; 72148

== ENCOUNTER 2020-09-21 15:49 | Emergency (ER) | payer MEDICARE, OTHER ==
[2020-09-21 16:01] VITALS: TEMP 98.4
[2020-09-21] MEDS ORDERED: HYDROmorphone 1 MG/ML 1 ML SYRINGE IVP STA ×2 (16:09→17:18)
--- NOTE | 2020-09-21 17:15 | XR ---
EXAMINATION TYPE: XR ankle limited RT DATE OF EXAM: 09/21/2020 COMPARISON: None HISTORY: Severe pain, fall TECHNIQUE: Two-view right ankle FINDINGS: Ankle mortise as visualized appears intact. There may be some soft tissue swelling over the inferior medial malleolus. No displaced fracture identified within the [id number]. IMPRESSION: 1. Normal two-view right ankle. 2. Follow-up exam can be performed 7-10 days from acute trauma for continued pain.
[2020-09-21] MEDS ORDERED: KETOROLAC 15 MG/ML 1 ML VIAL IVP STA (17:17)
--- NOTE | 2020-09-21 17:17 | XR ---
EXAMINATION TYPE: XR tibia fibula RT DATE OF EXAM: 09/21/2020 COMPARISON: None HISTORY: Fall, severe pain TECHNIQUE: 2 view right tibia and fibula FINDINGS: There is an oblique fracture of the proximal diaphyseal fibula. There is a metaphyseal tibial fracture. This appears comminuted with extension into the lateral tibia l plateau and possibly the medial portion of the medial tibial plateau. Extension into the tibial spi feliciano is likely present. No additional fractures are evident. IMPRESSION: 1. Comminuted fractured tibial metaphysis with intra-articular extension into the lateral tibial malgorzata teau. 2. Oblique fracture proximal diaphyseal fibula.
--- NOTE | 2020-09-21 17:20 | XR ---
EXAMINATION TYPE: XR knee limited RT DATE OF EXAM: 09/21/2020 COMPARISON: None HISTORY: Pain, fall TECHNIQUE: Two-view right knee FINDINGS: There is an oblique fracture of the proximal diaphyseal fibula. There is a fracture through the metaphysis of the proximal tibia. This is comminuted with extension i nto the lateral tibial plateau, the tibial spines, and possibly the medial aspect of the medial tibia l plateau. Small joint effusion is present. There is extensive sclerosis through the distal femur may be a medullary infarct. IMPRESSION: 1. Comminuted fracture proximal diaphysis tibia with intra-articular extension. 2. Oblique fracture proximal diaphyseal fibula. 3. Sclerosis through the distal femur may be related to medullary infarct. This however extends towar ds the medial femoral condylar surface, other etiologies should be considered.
--- NOTE | 2020-09-21 17:33 | XR ---
EXAMINATION TYPE: XR foot limited RT DATE OF EXAM: 09/21/2020 COMPARISON: None HISTORY: Fall, severe pain TECHNIQUE: Two-view right foot FINDINGS: No acute fracture or dislocation is evident. Soft tissues appear normal. There is some vagu e increased density above the tuft of the fourth digit. This may be foreign body material at the nail . Follow up exams can be performed 7-10 days from acute trauma for continued pain. IMPRESSION: 1. No acute osseous abnormality right foot. 2. Possible foreign body at the distal fourth digit
--- NOTE | 2020-09-21 17:52 | ED ---
Fall HPI - General Chief Complaint: Fall Stated Complaint: Fall Time Seen by Provider: 09/21/20 15:58 Source: patient, EMS Mode of arrival: EMS - History of Present Illness Initial Comments: Patient is a 55-year-old female with past medical history of scleroderma, Raynauds, reasoning to the emergency department via EMS after a fall. Patient states she was only approximately 2 feet up on a ladder when she went to jump off and is not sure how she landed but landed mostly on her right lower leg. Patient has extreme amount of pain, she did receive 24 mg of ketamine IV, and th e EMS prior to arrival. She states she did not hit her head, she has no complaints of pain anywhere else except for her right lower extremity. She is unwilling to move his extremity. She is able to wiggle her toes. She denies being on blood thinners. She has no further complaints at this time. - Related Data Home Medications Medication Instructions Recorded Confirmed Albuterol Inhaler (Mhu) [Ventolin 1 - 2 puff INHALATION RT-Q6H PRN 07/19/16 02/22/18 Hfa Inhaler (Mhu)] DULoxetine HCL [Cymbalta] 30 mg PO DAILY 02/22/18 02/22/18 Hydroxychloroquine Sulfate 300 mg PO BID 02/22/18 02/22/18 [Plaquenil] Ondansetron [Zofran ODT] 8 mg PO Q12HR PRN 02/22/18 02/22/18 carBAMazepine [TEGretol XR] 400 mg PO Q12HR 02/22/18 02/22/18 Previous Rx's Medication Instructions Recorded Hydrocodone/Acetaminophen [Gueydan 1 each PO Q6HR PRN #12 tab 02/22/18 5-325] Allergies Allergy/AdvReac Type Severity Reaction Status Date / Time cephalexin [From Keflex] Allergy Rash/Hives Verified 02/22/18 17:04 theophylline Allergy Unknown Verified 02/22/18 17:04 Review of Systems ROS Statement: Those systems with pertinent positive or pertinent negative responses have been documented in the HPI. ROS Other: All systems not noted in ROS Statement are negative. Past Medical History Past Medical History: Asthma, Fibromyalgia Additional Past Medical History / Comment(s): limnited scleraderma with CREST , esophageal dysmotolity and Raynauds, pt. states she also has small fiber neuropathy and vertigo, Bacterial overgrowth involving the large bowel, chronic weight loss due to dietary difficulties in association with his esophageal dysmotility, chronic pain, degenerative arthritis History of Any Multi-Drug Resistant Organisms: None Reported Past Surgical History: No Surgical Hx Reported Additional Past Surgical History / Comment(s): EGD, eve fundoplication Past Anesthesia/Blood Transfusion Reactions: No Reported Reaction Past Psychological History: Anxiety, Depression Smoking Status: Never smoker Past Alcohol Use History: Occasional Past Drug Use History: None Reported - Past Family History Father Family Medical History: Cancer Additional Family Medical History / Comment(s): father 11 years ago from lung cancer Mother Additional Family Medical History / Comment(s): pt. states her mother is alive and healthy General Exam - General Exam Comments Initial Comments: GENERAL: Patient is well-developed and well-nourished. Patient is nontoxic and in moderate distress. HEAD: Atraumatic, normocephalic. EYES: Pupils equal round and reactive to light, extraocular movements intact, sclera anicteric, conjunctiva are normal. Eyelids were unremarkable. ENT: TMs normal, nares patent, oropharynx clear without exudates. Moist mucous membranes. NECK: Normal range of motion, supple without lymphadenopathy or JVD. LUNGS: Unlabored respirations. Breath sounds clear to auscultation bilaterally and equal. No wheezes rales or rhonchi. HEART: Regular rate and rhythm without murmurs, rubs or gallops. ABDOMEN: Soft, nontender, normoactive bowel sounds. No guarding, no rebound. No masses appreciated. : Deferred MUSCULOSKELETAL: Patient's right lower leg is in a splint from the EMS, she is unwilling to the knee. She is able to wiggle her right toes, she has neurovascular intact, bilateral equal dorsal pedal pulse. Rest of her extremities are within normal limits. No clubbing or cyanosis. NEUROLOGICAL: Patient is alert and oriented x 3. Motor and sensory are also intact. Cranial nerves II through XII grossly intact. Symmetrical smile. Normal speech. PSYCH: Normal mood, normal affect. SKIN: Warm, Dry, normal turgor, no rashes or lesions noted. Limitations: no limitations Course Vital Signs 09/21/20 15:50 Temperature 98.4 F Pulse Rate 118 H Respiratory 20 Rate Blood Pressure 116/112 O2 Sat by Pulse 98 Oximetry Medical Decision Making - Medical Decision Making Patient is a 55-year-old female here via EMS after she fell a proximal October 2 feet after she jumped off a small ladder. She had immense pain in her right lower leg. She did receive 24 mg of ketamine in the EMS prior to arrival. X- rays of her right knee, tib-fib reveal a comminuted fracture of the tibia metaphysis with intra-articular extension into the lateral tibial plateau, there is also an oblique fracture of the proximal fibula. She has been given a total of 2 mg of Dilaudid and 15 mg of Toradol. She is resting comfortably at this time. I did discuss this with our Ortho PA Juan Francisco, who recommended transfer to [facility]. I spoke with Dr. Dhillon who accepts the transfer, who also spoke with the ER team. Patient is in agreement with this plan of care. Her pulses were rechecked and remained normal. She is ready for transfer. Case discussed with Dr. Peres. Disposition Clinical Impression: Fall, Right medial tibial plateau fracture, Fracture of right proximal fibula Disposition: OTHER INSTITUTION NOT DEFINED Condition: Stable Referrals: Vandana Gutiérrez MD [Primary Care Provider] - 1-2 days - Out of Hospital Transfer - Req. Specs Out of Hospital Transfer - Requested Specifics: Other Emergency Center ([facility])
[2020-09-21 18:24] VITALS: RESP 18
[2020-09-21 18:49] VITALS: BP 116/88; PULSE 103
== END 2020-09-21 18:49 | disposition other institution (70) ==
LOC: EC 15:49
DX: S82.131A Displaced fracture of medial condyle of right tibia, initial encounter for closed fracture (principal); S82.831A Other fracture of upper and lower end of right fibula, initial encounter for closed fracture; J45.909 Unspecified asthma, uncomplicated; M79.7 Fibromyalgia; F41.9 Anxiety disorder, unspecified; F32.9 Major depressive disorder, single episode, unspecified; W11.XXXA Fall on and from ladder, initial encounter; Y93.39 Activity, other involving climbing, rappelling and jumping off
CPT/HCPCS: 73590; 73560; 73600; 73620; 99285; 96374; 96375; 96376; J1170; J1885

== ENCOUNTER → 2020-12-19 | Outpatient (CLI) | payer MEDICARE, OTHER | END | disposition home or self-care (01) | DX: M81.0 Age-related osteoporosis without current pathological fracture (principal) ==

== ENCOUNTER → 2021-01-08 | Outpatient (CLI) | payer MEDICARE, OTHER | END | disposition home or self-care (01) | LOC: LABWHC1 12:43 | PROVIDERS: ATTEND Internal Medicine Critical Care Medicine | DX: M81.0 Age-related osteoporosis without current pathological fracture (principal) | CPT/HCPCS: 36415; 82310 ==

== ENCOUNTER → 2021-11-12 | Outpatient (CLI) | payer MEDICARE, OTHER ==
--- NOTE | 2021-11-13 09:01 | MM ---
Reason for Exam: Screening (asymptomatic). Last mammogram was performed 2 year(s) and 11 month(s) ago. Patient History: Menarche at age 13. First Full-Term at age 26. Hysterectomy at age 29. Risk Values: Dayan 5 year model risk: 1.3%. NCI Lifetime model risk: 9.1%. Film Views: Bilateral CC views were taken. Bilateral MLO views were taken. Prior Study Comparison: 10/22/2016 Bilateral Screening Mammogram, [facility]. 11/19/2018 Bilateral Screening Mammogram, [facility]. Tissue Density: The breast tissue is heterogeneously dense. This may lower the sensitivity of mammography. Findings: Analyzed By CAD. Benign-appearing calcifications bilaterally. No architectural distortion. There is no suspicious group of microcalcifications or new suspicious mass in either breast. Overall Assessment: Benign, BI-RAD 2 Management: Screening Mammogram of both breasts in 1 year. A clinical breast exam by your physician is recommended on an annual basis and results should be correlated with mammographic findings. Electronically signed and approved by: Ronald Miller M.D. Radiologis
== END | disposition home or self-care (01) ==
LOC: RADMAMWWP 09:22
PROVIDERS: ATTEND Internal Medicine Critical Care Medicine
DX: Z12.31 Encounter for screening mammogram for malignant neoplasm of breast (principal)
CPT/HCPCS: 77063; 77067

== ENCOUNTER → 2022-01-27 | Outpatient (CLI) | payer MEDICARE ==
[2022-01-27 23:02] LABS: Basophils # (A) 0.04 X 10*3/uL (0.00-0.10); Basophils % (A) 0.4 %; Eosinophils % (A) 1.1 %; HCT 44.4 % (37.2-46.3); HGB 14.3 g/dL (12.0-15.0); Immature Grans, Automated 0.3 %; Lymphocytes # (A) 1.79 X 10*3/uL (0.90-5.00); Lymphocytes % (A) 19.9 %; MCH 29.7 pg (27.0-32.0); MCHC 32.2 g/dL (32.0-37.0); MCV 92.3 fL (80.0-97.0); Mean Platelet Volume 11.2 fL (9.5-12.2); Monocytes # (A) 0.73 X 10*3/uL (0.20-1.00); Monocytes % (A) 8.1 %; NRBC Per 100 WBC 0 /100 WBCS (0.0-0.0); Neutrophils # (A) 6.31 X 10*3/uL (1.80-7.70); Neutrophils % (A) 70.2 %; Platelet Count 263 X 10*3/uL (140-440); RBC 4.81 X 10*6/uL (4.10-5.20); RDW 13.7 % (11.5-14.5)
[2022-01-27 23:54] LABS: Erythrocyte Sedimentation Rate 4 mm/Hr (0-30)
[2022-01-28 00:36] LABS: % Iron Saturation 21.95 (12.00-45.00); African American GFR (CKD) 73.5 (60.0-200.0); Albumin 4.6 g/dL (3.8-4.9); Albumin/Globulin Ratio 1.84 (1.60-3.17); Anion Gap 12.5 mmol/L (10.00-18.00); BUN/Creat Ratio 11.01 Ratio (12.00-20.00); Calcium 9.8 mg/dL (8.7-10.3); Carbon Dioxide 23.4 mmol/L (20.0-27.5); Globulin 2.5 g/dL (1.6-3.3); Non-African American GFR(CKD) 63.5 (60.0-200.0); Potassium 4.4 mmol/L (3.5-5.5); Total Bilirubin 0.5 mg/dL (0.30-1.20); Total Protein 7.1 g/dL (6.2-8.2)
== END | disposition home or self-care (01) ==
LOC: LABWHC1 15:28
PROVIDERS: ATTEND Internal Medicine Critical Care Medicine
DX: M34.9 Systemic sclerosis, unspecified (principal)
CPT/HCPCS: 36415; 80053; 82306; 83540; 83550; 85025; 85652

== ENCOUNTER → 2023-01-15 | Outpatient (CLI) | payer MEDICARE, OTHER ==
[2023-01-15 17:00] LABS: Basophils # (A) 0.04 X 10*3/uL (0.00-0.10); Basophils % (A) 0.7 %; Eosinophils # (A) 0.22 X 10*3/uL (0.04-0.35); Eosinophils % (A) 3.7 %; HCT 41.5 % (37.2-46.3); HGB 13.3 d/dL (12.0-15.0); Lymphocytes # (A) 1.74 X 10*3/uL (0.90-5.00); Lymphocytes % (A) 29.3 %; MCH 30.2 pg (27.0-32.0); MCV 94.1 FL (80.0-97.0); Mean Platelet Volume 10.5 FL (9.5-12.2); Monocytes # (A) 0.76 X 10*3/uL (0.20-1.00); Monocytes % (A) 12.8 %; NRBC Per 100 WBC 0 X 10*3/uL (0.00-0.01); Neutrophils # (A) 3.16 X 10*3/uL (1.80-7.70); Neutrophils % (A) 53.2 %; Platelet Count 271 X 10*3/uL (140-440); RBC 4.41 X 10*6/uL (4.10-5.20); RDW 13.6 % (11.5-14.5); WBC 5.94 X 10*3/uL (4.50-10.00)
[2023-01-15 17:16] LABS: ALT 13 U/L (8-44); AST 18 U/L (13-35); Albumin 4.1 d/dL (3.8-4.9); Albumin/Globulin Ratio 1.86 Ratio (1.60-3.17); Alkaline Phosphatase 56 U/L (41-126); BUN/Creat Ratio 8.17 Ratio (12.00-20.00); Blood Urea Nitrogen 9.8 mg/dL (9.0-27.0); Calcium 9.5 mg/dL (8.7-10.3); Carbon Dioxide 25.7 mmol/L (21.6-31.8); Chloride 106 mmol/L (96-109); Globulin 2.2 d/dL (1.6-3.3); Glucose 55 mg/dL (70-110); Potassium 4.8 mmol/L (3.5-5.5); Sodium 142 mmol/L (135-145); Total Bilirubin 0.4 mg/dL (0.3-1.2); Total Protein 6.3 d/dL (6.2-8.2)
== END | disposition home or self-care (01) ==
LOC: LABWHC1 10:00
PROVIDERS: ATTEND Internal Medicine Critical Care Medicine
DX: M34.9 Systemic sclerosis, unspecified (principal)
CPT/HCPCS: 36415; 80053; 85025

== ENCOUNTER 2023-05-23 21:17 | Emergency (ER) | payer MEDICARE, OTHER ==
[2023-05-23 21:40] VITALS: TEMP 97.7
--- NOTE | 2023-05-23 23:10 | ED ---
Lower Extremity Injury HPI - General Chief Complaint: Extremity Injury, Lower Stated Complaint: Lt foot injury Time Seen by Provider: 05/23/23 22:23 Source: patient Mode of arrival: wheelchair Limitations: no limitations - History of Present Illness Initial Comments: This patient is a 57-year-old woman who presents to evaluation of her foot. She leaves she may have broken her foot when she slipped and fell on the steps. She states that she flex the foot and felt and heard a cracking sensation. She states that now when she attempts to put weight on her foot there is much worse pain. She has noted swelling. She indicates the mid foot area. MD Complaint: foot injury -: hour(s) Injury: Foot: Left Type of Injury: hyperflexion Place: home Severity: moderate Improves With: rest Worsens With: weight bearing Context: fall Associated Symptoms: snap/pop sensation, swelling, able to partially bear weight - Related Data Home Medications Medication Instructions Recorded Confirmed Albuterol Inhaler [Ventolin Hfa 1 - 2 puff INHALATION RT-Q6H PRN 07/19/16 02/22/18 Inhaler] DULoxetine HCL [Cymbalta] 30 mg PO DAILY 02/22/18 02/22/18 Hydroxychloroquine Sulfate 300 mg PO BID 02/22/18 02/22/18 [Plaquenil] Ondansetron [Zofran ODT] 8 mg PO Q12HR PRN 02/22/18 02/22/18 carBAMazepine [TEGretol XR] 400 mg PO Q12HR 02/22/18 02/22/18 Previous Rx's Medication Instructions Recorded Hydrocodone/Acetaminophen [[place] 1 each PO Q6HR PRN #12 tab 02/22/18 5-325] HYDROcodone/APAP 5-325MG [[place] 1 tab PO Q4HR PRN 3 Days #18 tab 05/23/23 5-325] Ibuprofen [Motrin] 600 mg PO Q8HR PRN #20 tab 05/23/23 Allergies Allergy/AdvReac Type Severity Reaction Status Date / Time cephalexin [From Keflex] Allergy Rash/Hives Verified 05/23/23 21:39 theophylline Allergy Unknown Verified 05/23/23 21:39 Review of Systems ROS Statement: Those systems with pertinent positive or pertinent negative responses have been documented in the HPI. ROS Other: All systems not noted in ROS Statement are negative. Constitutional: Denies: fever, chills, weakness Respiratory: Denies: cough, dyspnea Cardiovascular: Denies: chest pain, syncope Gastrointestinal: Denies: abdominal pain, vomiting Musculoskeletal: Reports: as per HPI, arthralgia. Denies: back pain Skin: Denies: rash, lesions Neurological: Denies: weakness, numbness, paresthesias Past Medical History Past Medical History: Asthma, Fibromyalgia Additional Past Medical History / Comment(s): limnited scleraderma with CREST , esophageal dysmotolity and Raynauds, pt. states she also has small fiber neuropathy and vertigo, Bacterial overgrowth involving the large bowel, chronic weight loss due to dietary difficulties in association with his esophageal dysmotility, chronic pain, degenerative arthritis History of Any Multi-Drug Resistant Organisms: None Reported Past Surgical History: No Surgical Hx Reported Additional Past Surgical History / Comment(s): EGD, eve fundoplication Past Anesthesia/Blood Transfusion Reactions: No Reported Reaction Past Psychological History: Anxiety, Depression Smoking Status: Never smoker Past Alcohol Use History: Occasional Past Drug Use History: None Reported - Past Family History Father Family Medical History: Cancer Additional Family Medical History / Comment(s): father 11 years ago from lung cancer Mother Additional Family Medical History / Comment(s): pt. states her mother is alive and healthy General Exam Limitations: no limitations General appearance: alert, in no apparent distress Respiratory exam: Present: normal lung sounds bilaterally. Absent: respiratory distress, wheezes, rales, rhonchi, stridor Cardiovascular Exam: Present: regular rate, normal rhythm, normal heart sounds, other (Normal dorsalis pedis pulse, symmetric. There is normal capillary refill.). Absent: systolic murmur, diastolic murmur, rubs, gallop Extremities exam: Present: tenderness, normal capillary refill. Absent: calf tenderness Right Knee exam: Present: normal inspection, full ROM. Absent: tenderness, swelling Lower Leg exam: Present: normal inspection, full ROM. Absent: tenderness, swelling Ankle exam: Present: normal inspection, full ROM. Absent: tenderness, swelling Foot/Toe exam: Present: tenderness, swelling. Absent: abrasion, laceration, ecchymosis, deformity, calcaneal tenderness, tenderness at base of 5th metatarsal Neurovascular tendon exam: Present: no vascular compromise. Absent: abnormal cap refill, motor deficit, sensory deficit, tendon deficit Neurological exam: Present: alert. Absent: motor sensory deficit Skin exam: Present: warm, dry, intact, normal color. Absent: rash Course Vital Signs 05/23/23 05/24/23 21:36 01:08 Temperature 97.7 F Pulse Rate 92 88 Respiratory 18 16 Rate Blood Pressure 133/91 138/77 O2 Sat by Pulse 99 98 Oximetry Procedures - Orthopedic Splinting/Casting Injury #1 Side: left Lower Extremity Injury Location: foot Lower Extremity Immobilizer: posterior splint Medical Decision Making - Medical Decision Making Please note that the exam findings documented above are on the left foot The patient had left foot x-rays which I interpreted as being suspicious for nondisplaced fracture to the metatarsal base. The patient is tender at the base of metatarsal. Splint is applied and the patient is cautioned against weight bearing. She'll follow-up with orthopedics. We discussed appropriate return parameters as well as the follow-up and further care. Was pt. sent in by a medical professional or institution (JEREMI Alvarez, FLYING SQU[employer] SALESPERSON, urgent care, hospital, or correction...) When possible be specific @ -[No] Did you speak to anyone other than the patient for history (EMS, parent, family, police, friend...)? What history was obtained from this source @ -[No] Did you review nursing and triage notes (agree or disagree)? Why? @ -[I reviewed and agree with nursing and triage notes] Were old charts reviewed (outside hosp., previous admission, EMS record, old EKG, old radiological studies, urgent care reports/EKG's, correction records)? Report findings @ -[No old charts were reviewed] Differential Diagnosis (chest pain, altered mental status, abdominal pain women, abdominal pain men, vaginal bleeding, weakness, fever, dyspnea, syncope, headache, dizziness, GI bleed, back pain, seizure, CVA, palpatations, mental health, musculoskeletal)? @ -[Differential Musculoskeletal Muscular strain, contusion, ligament sprain, fracture, arthritis, septic arthritis, bursitis, cellulitis, muscle spasm, nerve compression, DVT, arterial occlusion, herpes zoster, electrolyte abnormality, tumor.... This is not meant to be in all inclusive list EKG interpreted by me (3pts min.). @ -[As above] X-rays interpreted by me (1pt min.). @ -[I interpreted as above CT interpreted by me (1pt min.). @ -[None done] U/S interpreted by me (1pt. min.). @ -[None done] What testing was considered but not performed or refused? (CT, X-rays, U/S, labs)? Why? @ -[None] What meds were considered but not given or refused? Why? @ -[None] Did you discuss the management of the patient with other professionals (professionals i.e. DrSadie, PA, FLYING [employer]QU[employer] SALESPERSON, lab, RT, psych nurse, social media community manager, clinical veterinarian, teacher, surveillance sensor officer, assistant case manager)? Give summary @ -[No] Was smoking cessation discussed for >3mins.? @ -[No] Was critical care preformed (if so, how long)? @ -[No] Were there social determinants of health that impacted care today? How? (Homelessness, low income, unemployed, alcoholism, drug addiction, transp ortation, low edu. Level, literacy, decrease access to med. care, senior care, rehab)? @ -[No] Was there de-escalation of care discussed even if they declined (Discuss DNR or withdrawal of care, Hospice)? DNR status @ -[No] What co-morbidities impacted this encounter? (DM, HTN, Smoking, COPD, CAD, Cancer, CVA, ARF, Chemo, Hep., AIDS, mental health diagnosis, sleep apnea, morbid obesity)? @ -[None] Was patient admitted / discharged? Hospital course, mention meds given and route, prescriptions, significant lab abnormalities, going to OR and other pertinent info. @ -[As above Undiagnosed new problem with uncertain prognosis? @ -[No] Drug Therapy requiring intensive monitoring for toxicity (Heparin, Nitro, Insulin, Cardizem)? @ -[No] Were any procedures done? @ -[Splint applied Diagnosis/symptom? @ -[Acute foot fracture Acute, or Chronic, or Acute on Chronic? @ -[Acute Uncomplicated (without systemic symptoms) or Complicated (systemic symptoms)? @ -[Uncomplicated Side effects of treatment? @ -[No] Exacerbation, Progression, or Severe Exacerbation? @ -[No] Poses a threat to life or bodily function? How? (Chest pain, [place], [place], pneumonia, PE, COPD, DKA, ARF, appy, cholecystitis, CVA, Diverticulitis, Homicidal, Suicidal, threat to staff... and all critical care pts) @ -[No] Disposition Clinical Impression: Fracture of foot Disposition: HOME SELF-CARE Condition: Good Instructions (If sedation given, give patient instructions): Foot Fracture in Adults (ED) Prescriptions: Ibuprofen [Motrin] 600 mg PO Q8HR PRN #20 tab PRN Reason: Pain HYDROcodone/APAP 5-325MG [[place] 5-325] 1 tab PO Q4HR PRN 3 Days #18 tab PRN Reason: Pain Is patient prescribed a controlled substance at d/c from ED?: Yes When asked, does pt state using other controlled substances?: No If prescribed controlled substance>3 days was MAPS reviewed?: Prescribed <3 Days If opioid is for acute pain is fill amount 7 days or less?: Yes If Rx opioid, was Start Talking consent form obtained?: Yes Referrals: Tomas Gatica MD [REFERRING] - 1-2 days Mikey Felton MD [STAFF PHYSICIAN] - 1-2 days
[2023-05-23] MEDS ORDERED: MORPHINE SULFATE 4 MG/ML SYRINGE IM STA (23:27)
--- NOTE | 2023-05-24 00:14 | XR ---
EXAMINATION TYPE: XR foot complete LT DATE OF EXAM: 05/23/2023 9:55 PM CLINICAL INDICATION:Female, 57 years old with history of fall; [facility] COMPARISON: None. TECHNIQUE: Three views left foot were obtained. FINDINGS: Heterogeneous appearance across the Lisfranc joints likely degenerative changes limiting assessment. No clear evidence of fracture or dislocation. Lateral view shows lucency possibly small fracture at t he plantar base of first metatarsal. Mild degenerative change at the great toe MTP joint. Joint space s are otherwise maintained. Soft tissues are unremarkable. No radiopaque foreign body is seen. IMPRESSION: 1. Limited study. 2. Heterogeneous appearance across the Lisfranc joints likely degenerative changes. 3. Possible small fracture at the plantar base of the first metatarsal. Correlate clinically for yoly n and point tenderness. FOLLOW-UP: Follow-up as clinically warranted.
[2023-05-24] MEDS ORDERED: HYDROmorphone 1 MG/ML 1 ML SYRINGE IVP STA (00:46)
[2023-05-24] MEDS ORDERED: HYDROmorphone 1 MG/ML 1 ML SYRINGE IM STA (00:48)
[2023-05-24 01:12] VITALS: BP 138/77; PULSE 88; RESP 16
== END 2023-05-24 01:48 | disposition home or self-care (01) ==
LOC: EC 21:17
DX: S92.902A Unspecified fracture of left foot, initial encounter for closed fracture (principal); J45.909 Unspecified asthma, uncomplicated; F41.9 Anxiety disorder, unspecified; F32.A Depression, unspecified; Z79.899 Other long term (current) drug therapy; Z88.8 Allergy status to other drugs, medicaments and biological substances; Z88.1 Allergy status to other antibiotic agents; W10.9XXA Fall (on) (from) unspecified stairs and steps, initial encounter
CPT/HCPCS: 99283; 96372 ×2; 29515; 73630; J2270; J1170

== ENCOUNTER → 2023-06-01 | Outpatient (CLI) | payer MEDICARE, OTHER ==
--- NOTE | 2023-06-03 08:34 | CT ---
EXAMINATION TYPE: CT foot LT wo con DATE OF EXAM: 06/01/2023 COMPARISON: Radiograph 05/23/2023 HISTORY: 57-year-old female M7 9.672, left foot pain, fracture at the base of the second metatarsal. TECHNIQUE: Contiguous axial scanning of the left foot without IV contrast. Coronal and sagittal recon structions performed. 3-D reconstructions generated on a dedicated independent workstation. CT DLP: 223.2 mGycm Automated exposure control for dose reduction was used. FINDINGS: There are multiple fractures along the TMT joints including: * Posteromedial corner fracture along the plantar base of the first metatarsal. * Comminuted fractures at the second metatarsal base with intra-articular extension into the TMT jose nt and intermetatarsal joints. * Comminuted and impacted fracture third metatarsal base with articular surface disruption measuring up to 9 mm due to the impaction. * Medial plantar corner fracture at the fourth metatarsal base. * Mildly impacted, comminuted fracture along the distal lateral cuboid with intra-articular extensio n to both the fourth and fifth TMT joints. No jorge luis midfoot malalignment is time. Associated soft tissue swelling. Mild degenerative change first TMT joint and first metatarsal sesamoid joint. IMPRESSION: 1. MULTIPLE FRACTURES INVOLVING ALL OF THE TMT JOINTS OF THE LEFT FOOT ALONG THE REGION OF THE LISFRA NC LIGAMENT COMPLEX. COMMINUTION PARTICULARLY AT THE SECOND AND THIRD METATARSAL BASE. IMPACTION RESU LTING IN APPROXIMATELY 9 MM OF ARTICULAR SURFACE DISRUPTION AT THE THIRD TMT JOINT. 2. DETAILS ABOVE. NO FRAGMENTS WITH MALALIGNMENT AT THIS TIME.
== END | disposition home or self-care (01) ==
LOC: RADCTMAIN 05-29 17:56
PROVIDERS: ATTEND Podiatrist
DX: S92.322A Displaced fracture of second metatarsal bone, left foot, initial encounter for closed fracture (principal); S93.325A Dislocation of tarsometatarsal joint of left foot, initial encounter

== ENCOUNTER → 2023-07-15 | Outpatient (CLI) | payer MEDICARE ==
--- NOTE | 2023-07-15 14:32 | BD ---
EXAMINATION TYPE: Axial Bone Density DATE OF EXAM: 07/15/2023 CLINICAL HISTORY: 58 years old Female. ICD-10 CODE: M81.0 AGE RELATED OSTEOPOROSIS Height: 63.3 Weight: 150 FRAX RISK QUESTIONS: Glucocorticoids (More than 3mos): yes, for asthma, many yrs now (Ex: prednisone, prednisolone, methylprednisolone, dexamethasone, and hydrocortisone). History of Fracture in Adulthood: yes Secondary Osteoporosis: yes 3. Menopause before 45: yes, 29 yrs old RISK FACTORS frequent falls...perihernial neuropathy. HISTORY OF: recent fx of foot and ankle left History of Wrist Fracture: yes, lt at 17 yrs old osteoarthritis MEDICATIONS: Osteoporosis Medications: Prolia injections, for about 2 yrs calcium and vitamin d EXAM MEASUREMENTS: Bone mineral densitometry was performed using the Dtime System. Bone mineral density as measured about the Lumbar spine is: ----- L1-L4(G/cm2): 0.996 T Score Values are as follows: ----- L1: -1.8 ----- L2: -2.1 ----- L3: -0.8 ----- L4: -1.7 ----- L1-L4: -1.5 Z Score Values are as follows: ----- L1: -1.0 ----- L2: -1.2 ----- L3: 0.1 ----- L4: -0.9 ----- L1-L4: -0.7 Bone mineral density has: Increased 15.0% since study of: 12.19.2020 Bone mineral density about the R hip (g/cm2): 0.529 Bone mineral density about the L hip (g/cm2): 0.704 T Score values are as follows: -----R Neck: -3.1 -----L Neck: -1.9 -----R Total: -3.8 -----L Total: -2.4 Z Score values are as follows: -----R Neck: -2.0 -----L Neck: -0.8 -----R Total: -3.1 -----L Total: -1.7 Bone mineral density has: Increased 11.0% since study of: 12.19.2020 FRAX%s: The graph provided illustrates a 35.4% chance for a major osteoporotic fx and a 12.8% chance for the hips probability for fx in 10 years time. IMPRESSION: Osteoporosis (T Score less than -2.5). There is increased fracture risk and therapy is usually indicated based on age. Re-Screen 1-2 years. NOTE: T-SCORE=SD OF THE YOUNG ADULT MEAN.
== END | disposition home or self-care (01) ==
LOC: RADBDWWP 13:44
PROVIDERS: ATTEND Internal Medicine Critical Care Medicine
DX: M81.0 Age-related osteoporosis without current pathological fracture (principal); M85.89 Other specified disorders of bone density and structure, multiple sites; Z78.0 Asymptomatic menopausal state
CPT/HCPCS: 77080

== ENCOUNTER → 2023-07-15 | Outpatient (CLI) | payer MEDICARE ==
[2023-07-15 15:30] LABS: Partial Thromboplastin Time 29.2 sec (22.0-30.0); Prothrombin Time 10.9 sec (10.0-12.5)
[2023-07-16 03:07] LABS: % Iron Saturation 9.16 (12.00-45.00); ALT 10 U/L (8-44); AST 16 U/L (13-35); Albumin 4.3 g/dL (3.8-4.9); Albumin/Globulin Ratio 1.59 Ratio (1.60-3.17); Alkaline Phosphatase 70 U/L (41-126); Blood Urea Nitrogen 8.4 mg/dL (9.0-27.0); C Reactive Protein <0.30 mg/dL (0.00-0.80); Calcium 9.9 mg/dL (8.7-10.3); Carbon Dioxide 25.5 mmol/L (21.6-31.8); Chloride 112 mmol/L (96-109); Creatine Kinase 39 U/L (26-186); Globulin 2.7 g/dL (1.6-3.3); Glucose 85 mg/dL (70-110); Iron 35 UG/DL (50-170); Potassium 4.6 mmol/L (3.5-5.5); Rheumatoid Factor, Qnt <15 IU/mL (0-15); Sodium 152 mmol/L (135-145); Total Bilirubin 0.3 mg/dL (0.3-1.2); Total Iron Binding Capacity 382 UG/DL (228-460)
[2023-07-16 03:47] LABS: Basophils # (A) 0.02 X 10*3/uL (0.00-0.10); Basophils % (A) 0.3 %; Eosinophils # (A) 0.22 X 10*3/uL (0.04-0.35); Eosinophils % (A) 3.3 %; HCT 40.8 % (37.2-46.3); HGB 12.8 g/dL (12.0-15.0); Lymphocytes # (A) 1.76 X 10*3/uL (0.90-5.00); Lymphocytes % (A) 26.1 %; MCH 28.7 pg (27.0-32.0); MCHC 31.4 g/dL (32.0-37.0); MCV 91.5 FL (80.0-97.0); Mean Platelet Volume 10.5 FL (9.5-12.2); Monocytes # (A) 0.65 X 10*3/uL (0.20-1.00); Monocytes % (A) 9.6 %; NRBC Per 100 WBC 0 X 10*3/uL (0.00-0.01); Neutrophils # (A) 4.08 X 10*3/uL (1.80-7.70); Neutrophils % (A) 60.4 %; Platelet Count 306 X 10*3/uL (140-440); RBC 4.46 X 10*6/uL (4.10-5.20); RDW 14.2 % (11.5-14.5); WBC 6.75 X 10*3/uL (4.50-10.00)
[2023-07-16 04:27] LABS: Centromere Antibody >8.0 AI; Centromere Antibody Interp POSITIVE; Scleroderma SC-70 Ab <0.2 AI
[2023-07-16 04:29] LABS: Cardiolipin Ab IgG Interp Negative (Negative); Cardiolipin Ab IgM Interp Negative (Negative); Cardiolipin IgA Antibody <2.0 U/mL; Cardiolipin IgM Antibody <1.5 U/mL
[2023-07-16 04:39] LABS: Cyclic Citrull Pep IgG Unit <1.5 U/mL (<=3.9); Cyclic Citrullinated Pep IgG Negative
[2023-07-16 05:25] LABS: Erythrocyte Sedimentation Rate 8 mm/Hr (0-30)
[2023-07-16 13:30] LABS: APTT 52 Sec(s) (<43); APTT 1:1 Mix 40 Sec(s) (<43); Dilute Russell Viper Venom 38 Sec(s) (<44)
== END | disposition home or self-care (01) ==
LOC: LABWHC1 13:49
DX: K92.1 Melena (principal)
CPT/HCPCS: 36415; 80053; 82550; 82784; 83540; 83550; 85025; 85610; 85613; 85652; 85730; 86038; 86039; 86140; 86147; 86160; 86200; 86235; 86431; 86780

== ENCOUNTER → 2024-07-15 | Outpatient (CLI) | payer SELFPAY | END | disposition home or self-care (01) | LOC: LABWHC1 12:47 | PROVIDERS: ATTEND Internal Medicine Critical Care Medicine | DX: M81.0 Age-related osteoporosis without current pathological fracture (principal) | CPT/HCPCS: 36415; 82310 ==

== ENCOUNTER → 2024-09-20 | Outpatient (CLI) | payer MEDICARE ==
--- NOTE | 2024-09-20 15:59 | MM ---
Reason for Exam: Screening (asymptomatic). Last mammogram was performed 2 year(s) and 11 month(s) ago. Patient History: Menarche at age 13. First Full-Term at age 26. Hysterectomy at age 29. Patient has history of breast feeding. Patient used Hormonal Contraceptives for 1 year. Risk Values: Dayan 5 year model risk: 1.5%. NCI Lifetime model risk: 8.5%. Prior Study Comparison: 10/22/2016 Bilateral Screening Mammogram, [facility]. 11/19/2018 Bilateral Screening Mammogram, [facility]. 11/12/2021 Bilateral MG 3D screening mammo w/cad, [facility]. Tissue Density: The breasts are heterogeneously dense, which may obscure small masses. Findings: Analyzed By CAD. Increased overall breast size suggesting interval weight gain. Clinically correlate. Areas of asymmetric density are unchanged. There is no suspicious group of microcalcifications or new suspicious mass in either breast. Overall Assessment: Benign, BI-RAD 2 Management: Screening Mammogram of both breasts in 1 year. Patient should continue monthly self-breast exams. A clinical breast exam by your physician is recommended on an annual basis. This exam should not preclude additional follow-up of suspicious palpable abnormalities. Note on Dayan scores and lifetime risk: 1. A Dayan score greater than 3% is considered moderate risk. If this is the case, consider specialist referral to assess eligibility for a risk reducing agent. 2. If overall lifetime risk for the development of breast cancer is 20% or higher, the patient may qualify for future screening with alternating mammogram and breast MRI. [facility], , 09/20/2024 3:57 PM. Electronically signed and approved by: Marina Topete M.D. Radiologist
--- NOTE | 2024-09-21 07:07 | CA ---
Transthoracic Echo Report Name: Samantha Mcdonald Age: 59 Gender: F : 1965 Exam Date: 09/20/2024 15:49 Exam Location: [place] [facility] Ht (in): 65 Wt (lb): 159 Ordering Physician: Vandana Gutiérrez MD Attending/Referring Phys: Senior Teradata Developer Jeny Cooper RDCS Procedure CPT: Indications: Z12.31 SCR MAMMO M34.1 CR(E)ST SYNDROME Cardiac Hx: Technical Quality: Fair Contrast 1: Total Dose (mL): Contrast 2: Total Dose (mL): MEASUREMENTS (Male / Female) Normal Values 2D ECHO LV Diastolic Diameter PLAX 4.2 cm 4.2 - 5.9 / 3.9 - 5.3 cm LV Systolic Diameter PLAX 3.3 cm IVS Diastolic Thickness 1.0 cm 0.6 - 1.0 / 0.6 - 0.9 cm LVPW Diastolic Thickness 1.2 cm 0.6 - 1.0 / 0.6 - 0.9 cm LV Relative Wall Thickness 0.5 RV Internal Dim ED PLAX 2.1 cm LA Systolic Diameter LX 3.0 cm 3.0 - 4.0 / 2.7 - 3.8 cm LV Diastolic Volume MOD BP 58.0 cm??? 67 - 155 / 56 - 104 cm??? LV Systolic Volume MOD BP 35.3 cm??? 22 - 58 / 19 - 49 cm??? LV Ejection Fraction MOD BP 39.2 % >= 55 % LV Cardiac Index MOD BP 1288.8 cm???/min???m??? LV Diastolic Volume MOD 4C 56.8 cm??? LV Systolic Volume MOD 4C 34.5 cm??? LV Ejection Fraction MOD 4C 39.3 % LV Cardiac Index MOD 4C 1265.1 cm???/min???m??? LV Diastolic Length 4C 6.6 cm LV Systolic Length 4C 5.4 cm LV Diastolic Volume MOD 2C 58.1 cm??? LV Systolic Volume MOD 2C 34.3 cm??? LV Ejection Fraction MOD 2C 41.0 % LV Cardiac Index MOD 2C 1351.3 cm???/min???m??? LV Diastolic Length 2C 6.5 cm LV Systolic Length 2C 5.7 cm M-MODE Aortic Root Diameter MM 2.7 cm LA Systolic Diameter MM 3.1 cm LA Ao Ratio MM 1.1 AV Cusp Separation MM 1.9 cm DOPPLER Mitral E Point Velocity 55.1 cm/s Mitral A Point Velocity 75.1 cm/s Mitral E to A Ratio 0.7 MV Deceleration Time 148.2 ms MV E' Velocity 6.1 cm/s Mitral E to MV E' Ratio 9.0 TR Peak Velocity 178.6 cm/s TR Peak Gradient 12.8 mmHg FINDINGS Left Ventricle Left ventricular ejection fraction is estimated at 40-45 %. Mildly increased septal wall thickness. Mildly increased posterior wall thickness. Mildly decreased left ventricular ejection fraction. Mildly reduced global left ventricular systolic function. Right Ventricle Normal right ventricular size and function. Right ventricular systolic pressure within normal limits. Right Atrium Normal right atrial size. Left Atrium Normal left atrial size. Mitral Valve Moderate prolapse of the anterior mitral valve leaflet. Moderate prolapse of the posterior mitral valve leaflet. Moderate mitral regurgitation. No mitral stenosis. Aortic Valve Trileaflet aortic valve. No aortic valve stenosis or regurgitation. Tricuspid Valve Structurally normal tricuspid valve. Trace to mild tricuspid regurgitation. No tricuspid stenosis. Pulmonic Valve Structurally normal pulmonic valve. Trace pulmonic regurgitation. No pulmonic stenosis. Pericardium No pericardial or pleural effusion. Aorta Normal size aortic root and proximal ascending aorta. CONCLUSIONS Mildly impaired LV function with EF between 45 to 50% 40 to 45% Mitral valve prolapse with moderate mitral regurgitation Normal pulmonary artery systolic pressure Normal right ventricular dimension and systolic function No pericardial effusion Previewed by: Dr. Allan Thao MD (Electronically Signed) Final Date: 21 September 2024 07:06
== END | disposition home or self-care (01) ==
LOC: RADMAMWWP 14:30
PROVIDERS: ATTEND Internal Medicine Critical Care Medicine
DX: Z12.31 Encounter for screening mammogram for malignant neoplasm of breast (principal); R92.333 Mammographic heterogeneous density, bilateral breasts; I34.1 Nonrheumatic mitral (valve) prolapse; I34.0 Nonrheumatic mitral (valve) insufficiency; I51.89 Other ill-defined heart diseases; M34.1 CR(E)ST syndrome; Z92.0 Personal history of contraception
CPT/HCPCS: 77063; 77067; 93306